=== PATIENT | male | born 1950 | race Caucasian/White ===

== ENCOUNTER 2018-11-02 20:40 | Emergency (ER) | payer BC, MEDICARE ==
[2018-11-02 21:16] VITALS: RESP 20; TEMP 96.8
[2018-11-02] MEDS ORDERED: SODIUM CHLORIDE 0.9% 1000ML 1,000 ML IV SCH (21:30)
[2018-11-02 21:41] LABS: BASOPHILS % (AUTO) 1 % (0-3); EOSINOPHILS % (AUTO) 2 % (0-9); HEMATOCRIT 44 % (39-53); LYMPHOCYTES % (AUTO) 15.9 % (10-50); MEAN CORPUSCULAR HEMOGLOBIN 30.6 pg (27.0-32.0); MEAN CORPUSCULAR HGB CONC 32.1 gm/dl (32.0-36.0); MEAN CORPUSCULAR VOLUME 95 fL (80-100); MONOCYTES % (AUTO) 8.5 % (0-12); NEUTROPHILS % (AUTO) 72.7 % (37-80)
[2018-11-02 21:49] LABS: APPEARANCE,URINE Clear; BILIRUBIN,URINE NEGATIVE (NEGATIVE); COLOR,URINE Yellow; GLUCOSE, URINE (UA) NEGATIVE (NEGATIVE); KETONES,URINE NEGATIVE (NEGATIVE); LEUKOCYTE ESTERASE ,URINE NEGATIVE (NEGATIVE); NITRATE,URINE NEGATIVE (NEGATIVE); OCCULT BLOOD,URINE NEGATIVE (NEG-TRACE); UROBILINOGEN,URINE 0.2 (0.2-1.0 EU)
[2018-11-02 21:50] LABS: CREATININE 1.14 mg/dl (0.80-1.30)
[2018-11-02 21:55] LABS: BACTERIA NEGATIVE (< 1+); CRYSTALS NEGATIVE (0-3 AVE/HPF); EPITHELIAL CELLS 0-2 (SQUAMOUS); RBC,URINE NEG (0-3AV/HPF); WBC,URINE 0-1 (0-5AV/HPF)
[2018-11-02 21:57] LABS: CARBON DIOXIDE 31.8 mEq/L (21-32)
[2018-11-03 00:28] VITALS: BP 151/85; PULSE 73; O2SAT 98
== END 2018-11-02 23:52 | disposition home or self-care (01) | DRG 696 ==
LOC: ED 20:40
DX: R33.9 Retention of urine, unspecified (principal); N40.1 Benign prostatic hyperplasia with lower urinary tract symptoms; R33.8 Other retention of urine; R39.16 Straining to void
CPT/HCPCS: 36415; 51798; 80048; 81001; 85025; 96365; 99283; 99284